=== PATIENT | female | born 1970 | race Caucasian/White ===

== ENCOUNTER → 2021-06-13 | Outpatient (CLI) | payer OTHER ==
[2021-06-14 09:13] LABS: VITAMIN D, 25-HYDROXY 29.1 ng/mL (30.0-100.0)
[2021-06-16 16:10] LABS: A/G RATIO 1.3 (0.7-1.7); ALBUMIN 4.1 g/dL (2.9-4.4); ALPHA-1-GLOBULIN 0.2 g/dL (0.0-0.4); ALPHA-2-GLOBULIN 0.9 g/dL (0.4-1.0); ANGIOTENSIN-CONVERTING ENZYME 44 U/L (14-82); BETA GLOBULIN 1.2 g/dL (0.7-1.3); GLOBULIN, TOTAL 3.3 g/dL (2.2-3.9); IMMUNOGLOBULIN A, QN, SERUM 161 mg/dL (87-352); IMMUNOGLOBULIN G, QN, SERUM 917 mg/dL (586-1602); IMMUNOGLOBULIN M, QN, SERUM 76 mg/dL (26-217); M-SPIKE Not Observed g/dL (Not Observed); PROTEIN, TOTAL, SERUM 7.4 g/dL (6.0-8.5)
== END ==
LOC: LAB 11:04
PROVIDERS: Internal Medicine
DX: E55.9 Vitamin D deficiency, unspecified (principal); D89.89 Other specified disorders involving the immune mechanism, not elsewhere classified; R76.8 Other specified abnormal immunological findings in serum; M25.50 Pain in unspecified joint; G56.00 Carpal tunnel syndrome, unspecified upper limb; R53.83 Other fatigue; R20.2 Paresthesia of skin; M79.643 Pain in unspecified hand
CPT/HCPCS: 36415; 82164; 82330; 82728; 82784; 83520; 83883; 84155; 84165; 86140; 86200; 86334